=== PATIENT | female | born 1945 | race Caucasian/White ===

== ENCOUNTER 2017-01-07 20:45 | Emergency (ER) | payer OTHER ==
[~2017-01-07] VITALS: Ht 154.9 cm; Wt 69.1 kg
[2017-01-07 21:09] VITALS: TEMP 36.6; Ht 154.9 cm; Wt 69.1 kg
[2017-01-07] MEDS ORDERED: CIPROFLOXACIN 500 MG TAB PO STA (22:08)
[2017-01-07] MEDS ORDERED: PHENAZOPYRIDINE HCL 200 MG TAB PO STA (22:08)
[2017-01-07] MEDS ORDERED: PHENAZOPYRIDINE HOME PACK 200 MG VIAL PO ONE (22:15)
[2017-01-07] MEDS ORDERED: CIPROFLOXACIN 500MG HOME PACK PO ONE (22:15)
[2017-01-07 22:16] LABS: URINE APPEARANCE CLOUDY (CLEAR); URINE BILIRUBIN NEG (NEG); URINE COLOR YELLOW; URINE NITRITE NEG (NEG); URINE PH 6.5 (4.5-7.5); URINE SPECIFIC GRAVITY 1.006 (1.000-1.030); UROBILINOGEN NEG (NEG); ZZUR CULT IF INDIC CLEAN CATCH YES
[2017-01-07 22:17] LABS: MANUAL MICROSCOPIC REQUIRED? NO; REVIEW REQ? NO
[2017-01-07] MEDS ORDERED: ACET-1256 PO (22:27)
[2017-01-07] MEDS ORDERED: OMEG10007 PO (22:27)
[2017-01-07] MEDS ORDERED: MULT-513 PO (22:27)
[2017-01-07] MEDS ORDERED: CIPR-255 PO (22:39)
[2017-01-07] MEDS ORDERED: PHEN-876 PO (22:39)
--- NOTE | 2017-01-07 22:39 | EMERGENCY ROOM VISIT NOTE ---
ED Visit Note First contact with patient: 21:49 Chief Complaint: Cystitis History of Present Illness: Patient is a 71-year-old female who presents to the emergency department to see for evaluation of her burning with urination as well as urinary frequency. She was treated last week for cystitis by clinical suspicion from her primary care provider as she was having burning with urination. She took an unknown antibiotic 4 times daily for 3 days. She had complete resolve of symptoms. She is traveling from [place] with family. She started with symptoms of burning with urination on Wednesday. She now has urinary frequency as well as incomplete voiding. She is tried nothing over-the- counter for her symptoms. She rates her current discomfort as 5/10. She reports no significant history of cystitis. She denies any fevers, chills, chest pain, palpitations, short of breath, nausea, vomiting, or abdominal pain. The patient takes no daily medications. Medications: No current medications. Allergies: No known allergies. PMH: No pertinent past medical history. SHx: Patient is a 71-year-old female who is traveling from [place]. ROS: All pertinent positive and negative review of systems are appropriately documented in the History of Present Illness. Physical Exam: VITAL SIGNS - Vital signs and nursing notes were reviewed. GENERAL - 71-year-old female appearing her stated age who is in no acute distress. Communicates well with provider and answers questions appropriately. ABDOMEN - Abdominal contour flat and without pulsations or visible masses. BS normoactive all four quadrants. No tenderness to palpation appreciated throughout. No palpable masses, hepatosplenomegaly, or ascites noted. PSYCH - A&Ox3 and cooperates fully with examiner. Pt is very pleasant and interacts well with examiner. ED Course: Patient was seen and evaluated by myself. Urine dip was obtained and was very suspicious for urinary tract infection. Given the patient's recent infection and return of symptoms, I did elect to treat patient empirically with Cipro. She was provided initial dose of Cipro as well as Pyridium in the emergency setting. Clinically, the patient appears well. She has no fever. She has no abdominal pain. She has no vomiting. I do not feel that labs or imaging studies are necessary at this point. The patient was educated thoroughly on worrisome symptoms for return visit to the emergency department. Patient discharged home afebrile and in good condition. In the evaluation and treatment of this patient, the following differential diagnoses were considered: Bladder Cancer, Chlamydial Genitourinary Infection, Cystitis, Herpes Simplex, Interstitial Cystitis, PID, Pyelonephritis, Urethritis , or Vaginitis. Impression: UTI, Dysuria Discharge Instructions: You have been treated in the Emergency Department for a Urinary Tract Infection (UTI). You have been prescribed Cipro to be taken as prescribed. This is an antibiotic. All antibiotics have the potential to cause diarrhea. Stop this medication and contact a medical provider if you were to develop any significant adverse side effects including: wheezing, shortness of breath, passing out, vomiting, or a diffuse rash. Always take antibiotics as directed and COMPLETE the ENTIRE course regardless of the improvement of your symptoms. You have been prescribed Pyridium to be taken as prescribed. This medicine will help with the urinary symptoms that you have been experiencing. Be aware that Pyridium may turn your urine a red-orange or brown color. This effect is harmless. For pain control, you can use the following qdsd-[id number]-vivrrwj medicines (if >12 yo): - Regular strength (325mg/tab) Tylenol (acetaminophen) 2 tabs every 4-6 hours as needed. Do not exceed 12 tablets in a 24 hour period. Avoid taking more than 4 grams (4000 mg) of Tylenol per day. This includes any other sources of acetaminophen you may take on a regular basis. - Regular strength (200 mg/tab) Advil (ibuprofen) 1-2 tabs every 4-6 hours as needed. Do not exceed a dose of 3200 mg per day. Drink plenty of water and stay well hydrated. As with any trip to the Emergency Department, you should follow-up with your Primary Care Provider from today's visit. Return to the emergency department if your symptoms persist despite treatment plan outlined above or if the following symptoms occur: increased fevers, chills , low back pain, nausea/vomiting, or blood in your urine. Current/Historical Medications Scheduled Acetaminophen (Tylenol), 1,000 MG PO PRN UD Ciprofloxacin Hcl (Cipro), 500 MG PO BID Fish Oil ([place]-3), 1 CAP PO DAILY Multivitamins/Minerals (Mvi With Minerals), 1 TAB PO DAILY Phenazopyridine HCl (Pyridium), 200 MG PO TID Vital Signs Date Time Temp Pulse Resp B/P Pulse Ox O2 Delivery O2 Flow Rate FiO2 01/07/17 22:45 92 18 139/97 95 Room Air 01/07/17 21:09 36.6 87 20 158/95 97 Room Air Laboratory Results Test 01/07/17 21:40 Urine Color YELLOW Urine Appearance CLOUDY (CLEAR) Urine pH 6.5 (4.5-7.5) Urine Specific [place] 1.006 (1.000-1.030) Urine Protein NEG (NEG) Urine Glucose (UA) NEG (NEG) Urine Ketones NEG (NEG) Urine Occult Blood 2+ (NEG) Urine Nitrite NEG (NEG) Urine Bilirubin NEG (NEG) Urine Urobilinogen NEG (NEG) Urine Leukocyte Esterase LARGE (NEG) Urine WBC (Auto) >30 /hpf (0-5) Urine RBC (Auto) 0-4 /hpf (0-4) Urine Hyaline Casts (Auto) 1-5 /lpf (0-5) Urine Epithelial Cells (Auto) 5-10 /lpf (0-5) Urine Bacteria (Auto) 4+ (NEG) Medications Administered Medications (Trade) Dose Ordered Sig/[place] Route Start Time Stop Time Status Last Admin Dose Admin Ciprofloxacin (Cipro Tab) 500 mg NOW STAT PO 01/07/17 22:08 01/07/17 22:09 DC 01/07/17 22:46 500 MG Phenazopyridine HCl (Pyridium Tab) 200 mg NOW STAT PO 01/07/17 22:08 01/07/17 22:09 DC 01/07/17 22:46 200 MG Phenazopyridine HCl (Phenazopyridine HCl 200MG Home Pack) 1 homepack UD ONCE PO 01/07/17 22:15 01/07/17 22:16 DC 01/07/17 22:46 1 HOMEPACK Ciprofloxacin (Cipro 500MG Home Pack) 1 homepack UD ONCE PO 01/07/17 22:15 01/07/17 22:16 DC 01/07/17 22:46 1 HOMEPACK Departure Information Impression Primary Impression: Urinary tract infection Additional Impression: Dysuria Dispostion Home / Self-Care Condition GOOD Prescriptions Phenazopyridine HCl (Pyridium) 200 Mg Tab 200 MG PO TID for 3 Days, #9 TAB Prov: Farhan Lauren, PA-C 01/07/17 Ciprofloxacin Hcl (CIPRO) 500 Mg Tab 500 MG PO BID for 7 Days, #14 TAB Prov: Farhan Lauren PA-C 01/07/17 Referrals No Doctor, Assigned (PCP) Patient Instructions ED UTI Cystitis Female, My [facility] Additional Instructions You have been treated in the Emergency Department for a Urinary Tract Infection (UTI). You have been prescribed Cipro to be taken as prescribed. This is an antibiotic. All antibiotics have the potential to cause diarrhea. Stop this medication and contact a medical provider if you were to develop any significant adverse side effects including: wheezing, shortness of breath, passing out, vomiting, or a diffuse rash. Always take antibiotics as directed and COMPLETE the ENTIRE course regardless of the improvement of your symptoms. You have been prescribed Pyridium to be taken as prescribed. This medicine will help with the urinary symptoms that you have been experiencing. Be aware that Pyridium may turn your urine a red-orange or brown color. This effect is harmless. For pain control, you can use the following qllr-oas-itxdtod medicines (if >12 yo): - Regular strength (325mg/tab) Tylenol (acetaminophen) 2 tabs every 4-6 hours as needed. Do not exceed 12 tablets in a 24 hour period. Avoid taking more than 4 grams (4000 mg) of Tylenol per day. This includes any other sources of acetaminophen you may take on a regular basis. - Regular strength (200 mg/tab) Advil (ibuprofen) 1-2 tabs every 4-6 hours as needed. Do not exceed a dose of 3200 mg per day. Drink plenty of water and stay well hydrated. As with any trip to the Emergency Department, you should follow-up with your Primary Care Provider from today's visit. Return to the emergency department if your symptoms persist despite treatment plan outlined above or if the following symptoms occur: increased fevers, chills , low back pain, nausea/vomiting, or blood in your urine. Problem Qualifiers Primary Impression: Urinary tract infection Urinary tract infection type: acute cystitis Hematuria presence: without hematuria Qualified Codes: N30.00 - Acute cystitis without hematuria
[2017-01-07 22:45] VITALS: BP 139/97; PULSE 92; O2SAT 95
== END 2017-01-07 22:54 | disposition home or self-care (01) ==
LOC: C.EDB 20:48 → C.EDC 22:54
DX: N30.00 Acute cystitis without hematuria (principal); R30.0 Dysuria; A49.8 Other bacterial infections of unspecified site